=== PATIENT | male | born 1940 | race Caucasian/White ===

== ENCOUNTER 2016-11-28 10:19 | Emergency (ER) | payer MEDICARE ==
[2016-11-28] MEDS ORDERED: CARVEDILOL25 MG PO (10:25)
[2016-11-28] MEDS ORDERED: BREO ELLIPTA 11 EACH INH (10:26)
[2016-11-28] MEDS ORDERED: JANTOVEN5 MG PO (10:26)
[2016-11-28] MEDS ORDERED: ZOCOR20 MG PO (10:26)
[2016-11-28] MEDS ORDERED: LASIX PO (10:26)
== END 2016-11-28 11:25 | disposition home or self-care (01) ==
LOC: SED 10:19
DX: S61.411A Laceration without foreign body of right hand, initial encounter (principal); S50.812A Abrasion of left forearm, initial encounter; I48.91 Unspecified atrial fibrillation; E11.9 Type 2 diabetes mellitus without complications; Z23 Encounter for immunization; I10 Essential (primary) hypertension; W01.0XXA Fall on same level from slipping, tripping and stumbling without subsequent striking against object, initial encounter; Y92.096 Garden or yard of other non-institutional residence as the place of occurrence of the external cause
CPT/HCPCS: 12002; 90471; 90715; 99283